=== PATIENT | female | born 1970 ===

== ENCOUNTER 2017-07-02 14:26 | Observation (INO) | payer SELFPAY ==
[2017-07-02 14:26] VITALS: BMI 37.1
[2017-07-02 14:32] VITALS: TEMP 98.7; O2SAT 98
[2017-07-02] MEDS ORDERED: Sodium Chloride 0.9% 1,000 ML IV STA (15:05)
--- NOTE | 2017-07-02 15:12 | ED PDOC ---
HPI: General Adult Time Seen by Provider: 07/02/17 14:40 Chief Complaint (Nursing): Abdominal Pain History Per: Patient Additional Complaint(s): Pt. states this morning she developed LLQ abdominal pain this morning that began with her period. Reports pain radiates to the back. States she developed nausea but no vomiting. Last BM was yesterday and was normal. Pt. states she's had this pain in the past and she believes it is due to her period but reports pain has never been this extreme. Denies fever, diarrhea, melena, hematochezia, BRBPR, vomiting, hematemesis, dysuria, hematuria, vaginal discharge. Past Medical History Reviewed: Historical Data, Nursing Documentation, Vital Signs Vital Signs: Last Vital Signs Temp 98.7 F 07/02/17 14:30 Pulse 64 07/02/17 14:30 Resp 16 07/02/17 14:30 BP 113/75 07/02/17 14:30 Pulse Ox 98 07/02/17 15:24 - Medical History PMH: Anemia Denies: Chronic Kidney Disease - Family History Family History: States: No Known Family Hx - Home Medications Home Medications: Ambulatory Orders Medication Instructions Recorded Acetaminophen [Tylenol] 325 mg PO PRN PRN 11/08/14 Iron,Carb/Vit C/Vit B12/Folic 1 tab PO BID 11/08/14 [Iron 100 Plus 250 mg-25 Mcg-1 mg-100 mg] Oxycodone HCl/Acetaminophen 1 tab PO .Q4-6 PRN 11/13/14 [Percocet 325 mg-5 mg] Cyclobenzaprine [Cyclobenzaprine 10 mg PO TID PRN #15 tab 11/15/15 HCl] Naproxen [Naprosyn] 500 mg PO Q12 #14 tab 11/15/15 - Allergies Allergies/Adverse Reactions: Allergies Allergy/AdvReac Type Severity Reaction Status Date / Time No Known Allergies Allergy Verified 07/02/17 14:30 Review of Systems ROS Statement: Except As Marked, All Systems Reviewed And Found Negative Gastrointestinal: Positive for: Nausea, Abdominal Pain Physical Exam - Reviewed Nursing Documentation Reviewed: Yes Vital Signs Reviewed: Yes - Physical Exam Appears: Positive for: Well, Non-toxic, In Acute Distress (moderate painful distress) Head Exam: Positive for: ATRAUMATIC, NORMAL INSPECTION, NORMOCEPHALIC Skin: Positive for: Normal Color, Warm. Negative for: Rash Eye Exam: Positive for: EOMI, Normal appearance, PERRL ENT: Positive for: Normal ENT Inspection Neck: Positive for: Normal, Painless ROM Cardiovascular/Chest: Positive for: Regular Rate, Rhythm Respiratory: Positive for: CNT, Normal Breath Sounds Gastrointestinal/Abdominal: Positive for: Normal Exam, Bowel Sounds, Soft, Tenderness (moderate LLQ tenderness). Negative for: Distended, Guarding Back: Positive for: Normal Inspection. Negative for: L CVA Tenderness, R CVA Tenderness Extremity: Positive for: Normal ROM Neurologic/Psych: Positive for: Alert, Oriented - Laboratory Results Result Diagrams: 07/02/17 15:23 07/02/17 15:23 - ECG O2 Sat by Pulse Oximetry: 98 - Progress ED Course And Treament: Labs ordered. Morphine 4mg IV, zofran 4mg IV, IV NS bolus ordered. ED OBSERVATION Discharge: Yes Date of observation admission: 07/02/17 Time of observation admission: 15:08 - Observation admission statement Patient is placed on observation because of need: for additional diagnostics to rule-out acute/life threatening conditio - Goals of Observation Goals of Observation: Improvement of pain - Progress Note Time:: 15:09 Progress Note: 07/02/17 18:02 CT abd/pelvis: questions mass in descending colon approximately 2cm. Elective follow up advised. Case d/w Dr. Spangler and recommends close outpatient f/u with [facility]. Case d/w Dr. Miller, FP resident, and states she will make appointment for pt. to been in [facility] tomorrow. Pt. informed of plan and agrees. Pt. will await call to determine what time to come in. Reports complete relief of pain. Disposition - Clinical Impression Clinical Impression: Mass of colon, UTI (urinary tract infection) - Patient ED Disposition Is Patient to be Admitted: No - Disposition Disposition: Routine/Home Disposition Time: 18:04 Condition: STABLE
[2017-07-02 15:30] LABS: BASO % 0.4 % (0.0-2.0); EOS % 0.5 % (0.0-4.0); HEMATOCRIT 37.7 % (34.0-47.0); LYMPH # 1.1 K/uL (1.0-4.3); LYMPH % 13.3 % (20.0-40.0); MEAN CELL VOLUME 78.5 fl (81.0-99.0); MEAN CORPUSCULAR HEMOGLOBIN 25.4 pg (27.0-31.0); MEAN CORPUSCULAR HGB CONC 32.4 g/dL (33.0-37.0); MONO # 0.6 K/uL (0.0-0.8); MONO % 7.1 % (0.0-10.0); NEUT # 6.8 K/uL (1.8-7.0); NEUT % 78.7 % (50.0-75.0); RED CELL DISTRIBUTION WIDTH 13.6 % (11.5-14.5); WHITE BLOOD COUNT 8.7 K/uL (4.8-10.8)
[2017-07-02 15:57] LABS: BLOOD UREA NITROGEN 16 mg/dl (7-17); GFR AFRICAN-AMERICAN > 60; GLUCOSE,RANDOM 124 mg/dL (65-105); SODIUM 142 mmol/l (132-148)
[2017-07-02 15:58] LABS: ALB/GLOB RATIO 1.2 (1.0-2.1); ALKALINE PHOSPHATASE 70 U/L (38-126); ALT/SGPT 23 U/L (9-52); AST/SGOT 26 U/L (14-36); BILIRUBIN,TOTAL 0.4 mg/dl (0.2-1.3); CALCIUM 9.3 mg/dL (8.4-10.2); CARBON DIOXIDE 22 mmol/L (22-30); CHLORIDE 106 mmol/L (98-107); POTASSIUM 3.9 MMOL/L (3.6-5.0); TOTAL PROTEIN 7.8 G/DL (6.3-8.2)
[2017-07-02 16:06] LABS: RBC URINE 11 /hpf (0-3); URINE BACTERIA RARE (<OCC); URINE BILIRUBIN NEGATIVE (NEGATIVE); URINE BLOOD MODERATE (NEGATIVE); URINE COLOR YELLOW (YELLOW); URINE GLUCOSE (UA) NEG (Normal); URINE KETONE NEGATIVE (NEGATIVE); URINE LEUKOCYTE ESTERASE MOD Leu/uL (Negative); URINE PROTEIN 100 mg/dL (NEGATIVE); URINE UROBILINOGEN 0.2-1.0 mg/dL (0.2-1.0); WBC CLUMPS FEW /hpf; WBC URINE 10 /hpf (0-5)
[2017-07-02] MEDS ORDERED: Sodium Chloride 0.9% 50 ML IV ONE (16:07)
[2017-07-02] MEDS ORDERED: Iohexol 300 100 ML IJ ONE (16:07)
--- NOTE | 2017-07-02 17:02 | CT ---
PROCEDURE: CT Abdomen and Pelvis with contrast HISTORY: Left lower quadrant abdominal pain. By history, negative test (concurrent with this examination). COMPARISON: None. TECHNIQUE: Contrast dose: 95 cc Omnipaque 300 Radiation dose: Total exam DLP = 884.41 mGy-cm. This CT exam was performed using one or more of the following dose reduction techniques: Automated exposure control, adjustment of the mA and/or kV according to patient size, and/or use of iterative reconstruction technique. FINDINGS: LOWER THORAX: Unremarkable. LIVER: Hepatic steatosis. No focal masses. No intrahepatic bile duct dilatation or perihepatic ascites. GALLBLADDER AND BILE DUCTS: Unremarkable. PANCREAS: Unremarkable. No gross lesion or ductal dilatation. SPLEEN: Unremarkable. ADRENALS: Unremarkable. No mass. KIDNEYS AND URETERS: Unremarkable. No hydronephrosis. No solid mass. VASCULATURE: Unremarkable. No aortic aneurysm. BOWEL: Questionable mass in the descending colon seen on all 3 orthogonal planes. The study is performed without oral contrast and therefore adequate distention of the descending colon and delineation of this mass is difficult. This measures 1.8 x 2 cm. The finding is marked on the study for review. This is not likely accounting for the clinical presentation. Elective followup recommended. Noninvasive follow-up, repeat CT scan with oral contrast advised. APPENDIX: Normal appendix. PERITONEUM: Unremarkable. No free fluid. No free air. LYMPH NODES: Unremarkable. No enlarged lymph nodes. BLADDER: Unremarkable. REPRODUCTIVE: Unremarkable. BONES: No acute fracture. OTHER FINDINGS: None. IMPRESSION: No acute findings related to/accounting for the clinical presentation. Questionable mass approximately 2 cm descending colon. Elective followup advised.
[2017-07-02 18:22] VITALS: BP 122/68; PULSE 75; RESP 14
== END 2017-07-02 18:04 | disposition home or self-care (01) ==
LOC: H.ER 14:26 → H.EROBSV 15:05
PROVIDERS: ADMIT Emergency Medicine; ATTEND Emergency Medicine
DX: N39.0 Urinary tract infection, site not specified (principal)
CPT/HCPCS: 74177; 80053; 81003; 81025; 85025; 87040; 87086; 96374; 96375; 99284; G0378; J2270; J2405; J7040; Q9967

== ENCOUNTER 2017-07-14 09:01 | Day surgery (SDC) | payer SELFPAY ==
[2017-07-14] MEDS ORDERED: Lactated Ringer's 500 ML IV ONE (11:46)
[2017-07-14 11:52] VITALS: O2SAT 100
[2017-07-14] MEDS ORDERED: Propofol 10 mg/ml Inj (20 ML) ONE (12:19)
[2017-07-14] MEDS ORDERED: Lidocaine 2% MPF (5 ml) Inj ONE (12:19)
[2017-07-14] MEDS ORDERED: Midazolam 2 MG/2 ML VIAL ONE (12:22)
[2017-07-14 13:22] VITALS: BP 117/69; PULSE 49; RESP 18; TEMP 97.5
== END 2017-07-14 13:40 | disposition home or self-care (01) ==
LOC: H.ENDO 09:01
PROVIDERS: ATTEND Internal Medicine Gastroenterology
DX: D50.9 Iron deficiency anemia, unspecified (principal); K29.50 Unspecified chronic gastritis without bleeding; R19.4 Change in bowel habit; K59.00 Constipation, unspecified; K64.8 Other hemorrhoids; R93.3 Abnormal findings on diagnostic imaging of other parts of digestive tract; K31.9 Disease of stomach and duodenum, unspecified; K44.9 Diaphragmatic hernia without obstruction or gangrene
CPT/HCPCS: 43239; 45378; 88305; J2250; J2704; J7120